=== PATIENT | female | born 2000 | race Caucasian/White ===

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

== ENCOUNTER 2019-12-07 19:43 | Emergency (ER) | payer OTHER, SELFPAY ==
[2019-12-07 19:45] VITALS: BP 147/90; PULSE 90; RESP 16; TEMP 36.4; O2SAT 99; BMI 27.6
--- NOTE | 2019-12-07 19:54 | ED.RN ---
ekg completed in triage
--- NOTE | 2019-12-07 19:55 | EKG12_ITS ---
Test Reason : DYSRHYTHMIA Blood Pressure : / mmHG Vent. Rate : 099 BPM Atrial Rate : 099 BPM P-R Int : 124 ms QRS Dur : 076 ms QT Int : 354 ms P-R-T Axes : 046 081 048 degrees QTc Int : 454 ms Normal sinus rhythm Normal ECG Confirmed by JOLANTA COREY, MARGARETH ([id number]), editor trade journal LEEROY ZHANG ([id number]) on 12/08/2019 9:45:46 AM Referred By: JACKIE Confirmed By:MARGARETH STOEVR MD
--- NOTE | 2019-12-07 19:57 | ED.RN ---
NO OLD EKGS IN MUES
[2019-12-07 20:17] VITALS: BP 114/79; PULSE 87; RESP 18; O2SAT 97
--- NOTE | 2019-12-07 20:19 | ED.RN ---
PT REFUSING IV AT THIS TIME.
--- NOTE | 2019-12-07 20:55 | ED.VIS.GEN ---
History of Present Illness Chief Complaint: Palpitations Informant: Patient Narrative: 19-year-old female with no significant past medical history presents with concern for palpitations. States that over the past 2 weeks she has had moments when she feels like her heart is skipping a beat. States that she has dizziness during these periods. Denies any chest pain, shortness of breath, nausea, vomiting. Denies any urinary symptoms. Most recent menstrual period was approximately 3 weeks ago. No concern for . Past Medical History - Allergies and Home Meds Allergies/Adverse Reactions: Allergies No Known Allergies Allergy (Verified 12/07/19 19:44) Primary Care Physician: Lashanda Turner,Out of [Primary Care Provider] - Past Medical History: None Surgical History: no surgical history Lives: Roommate Smoking Status: Never smoker Review of Systems General: Denies: Chills, Fever, Sweats Eyes: Denies: Visual changes - bilaterally, Diplopia ENT: Denies: Rhinorrhea, Sore throat Cardiovascular: Reports: Palpitations. Denies: Chest pain Respiratory: Denies: Dyspnea, Cough, Dyspnea on exertion Gastrointestinal: Denies: Abdominal pain, Nausea, Vomiting, Diarrhea, Melena, Hematochezia Genitourinary: Denies: Dysuria, Hematuria, Frequency Musculoskeletal: Denies: Back pain, Extremity Pain Skin: Denies: Rash, Wounds Neurological: Denies: Headache, Weakness, Numbness Physical Exam Vital Signs/Narrative: Vital Signs Temp Pulse Resp BP Pulse Ox 12/07/19 20:17 87 18 114/79 97 12/07/19 19:45 97.6 F L 90 16 147/90 H 99 Inital Vital Signs reviewed: Yes General: Well nourished, Well developed, No Acute Distress Head: Normocephalic, Atraumatic Eyes: Perrl, EOMI ENT: Moist mucous membranes, No rhinorrhea Neck: Supple, Nontender Cardiovascular: Regular rate, Regular rhythm, No murmurs Respiratory: No distress, CTA bilaterally, Chest nontender Abdomen: Soft, Nontender, Nondistended, Normal bowel sounds Back: Nontender, Normal Inspection Extremities: Nontender, No edema Skin: Normal color, No rash Neurological: Alert, Oriented x3, Cranial nerves II-XII grossly intact, Normal Strength, Normal Sensation Psychological: Normal affect, Normal Mood Diagnostic/Tx/Re-eval Chest X-Ray - ED: 1 View, No Acute Disease Laboratory Data 12/07/19 12/07/19 21:30 21:30 WBC 7.3 RBC 4.09 L Hgb 12.4 Hct 37.8 MCV 92.4 MCH 30.3 MCHC 32.8 RDW Std Deviation 40.2 RDW Coeff of May 11.9 Plt Count 264 MPV 9.4 Immature Gran % (Auto) 0.300 Neut % (Auto) 52.1 Lymph % (Auto) 37.8 [place] % (Auto) 8.4 Eos % (Auto) 1.0 Baso % (Auto) 0.4 Absolute Neuts (auto) 3.8 Absolute Lymphs (auto) 2.74 Nucleated RBC % 0 Sodium 142 Potassium 3.6 Chloride 110 H Carbon Dioxide 27.0 Anion Gap 5 BUN 12 Creatinine 0.72 Estim Creat Clear Calc 94.05 Est GFR (MDRD) Af Amer 133 Est GFR (MDRD) Non-Af 110 BUN/Creatinine Ratio 16.8 Glucose 88 Calcium 9.1 - Rhythm Strip Rhythm Strip: Sinus Rhythm Rate: 99 Ectopy: None - EKG Initial EKG Interpretation: Sinus Rhythm - Normal sinus rhythm at 99 bpm. MI interval 124 ms. QTC 454 ms. No evidence of ST elevation or depression at this time. - Medical Decision Making Patient appears well nontoxic. Vital signs within normal limits. EKG nonischemic. Chest x-ray negative. She does not wish to stay for urinalysis. Patient will be given local primary care to follow with. Asked to return for new or worsening symptoms. Discharged home in stable condition. Impression: 1. Palpitations 2. Dizziness ED Disposition - Plan for ED Patient: Disposition: Home or Assisted Living Instructions: ED Palpitations Referrals: Orlando Tenorio DO [STAFF PHYSICIAN] - 2 Days
--- NOTE | 2019-12-07 21:35 | RAD_ITS ---
STUDY: X-RAY CHEST REASON FOR EXAM: Female, 19 years old. palpitations, dizziness TECHNIQUE: Single AP portable view of the chest. COMPARISON: None. FINDINGS: There are monitoring devices. The lungs are clear and expanded. There is no demonstrated pleural abnormality. Normal size heart. Normal mediastinum and cole. Normal visualized pulmonary arteries. Normal visualized aortic arch and descending thoracic aorta. Normal visualized thoracic spine. Normal visualized ribs, clavicles, and shoulders. There is no demonstrated abnormality of the visualized soft tissue structures of the upper abdomen. RAD/Chest 1 View (Portable) IMPRESSION: Normal x-ray examination of the chest. Electronically Signed: Graeme Sainz MD at 23:01 EDT , Service support ,
[2019-12-07 21:38] LABS: Absolute Lymphocyte Count 2.74 X10^3/uL (0.83-4.51); Absolute Neutrophil Count 3.8 X10^3/uL (2.0-7.7); Basophil# 0.03 X10^3/uL; Basophil% 0.4 % (0-1); Eosinophil# 0.07 X10^3/uL; Hematocrit 37.8 % (37-47); Hemoglobin 12.4 g/dL (12.0-15.0); Lymphocyte # 2.74 X10^3/ul (4.0); Lymphocyte % 37.8 % (19-41); Mean Corp Hgb Conc 32.8 g/dL (32-36); Mean Corpuscular Hgb 30.3 pg (27.0-32.0); Mean Corpuscular Volume 92.4 fL (81-99); Mean Platelet Vol. 9.4 fl (6.2-12.0); Monocyte# 0.61 X10^3/uL; Monocyte% 8.4 % (0-10); NRBC Flagged by Analyzer 0 % (0-5); Neutrophil # 3.78 X10^3/uL (2.7-7.7); Neutrophil % 52.1 % (47-70); Platelet Count 264 K/mm3 (150-450); RBC Distribution Width CV 11.9 % (11.6-14.6); RBC Distribution Width SD 40.2 fl (35.1-43.9); Red Blood Count 4.09 M/mm3 (4.2-5.4); White Blood Count 7.3 K/mm3 (4.4-11.0)
[2019-12-07 21:52] LABS: Anion Gap 5 (5-15); BUN 12 mg/dL (7-18); BUN/Creat Ratio 16.8 RATIO (10-20); Calcium,Total 9.1 mg/dL (8.5-10.1); Chloride 110 mmol/L (98-107); Creatinine, Serum 0.72 mg/dL (0.55-1.02); EST Glomerular Filtration Rate 110 mL/min (>60); Est Glom Filt Rate - Afr Amer 133 mL/min (>60); Estimated Creatinine Clearance 94.05 ml/min; Glucose 88 mg/dL (74-106); Potassium 3.6 mmol/L (3.5-5.1); Sodium Level 142 mmol/L (136-145)
[2019-12-07 22:10] VITALS: PULSE 92; RESP 14; O2SAT 98
[2019-12-07 22:34] LABS: Bacteria 0 SEEN /hpf (None Seen); Mucous, Urine 0 SEEN /hpf (<or=2+); White Blood Cells 0 SEEN /hpf (0-5)
[2019-12-07 22:37] LABS: Color, Urine Yellow (Yellow); Glucose, Dipstick Normal (Normal); Ketone-Dipstick Negative (Negative); Leukocyte Esterase-Dipstick Negative /ul (Negative); Nitrite-Dipstick Negative (Negative); Occult Blood-Urine 250 /ul (Negative); Protein-Dipstick 15 mg/dl (Negative); Urine Bilirubin Dipstick Negative (Negative); Urine Clarity Clear (Clear); Urine Urobilinogen Normal (Normal)
[2019-12-07 22:40] LABS: Internal QC Validated? YES +Cl - CLEAR BKGD; Pregnancy, Urine Negative Negative
[2019-12-07 22:43] LABS: Red Blood Cells-Urine 5-10 SEEN /hpf (0-5); Squamous Epithelial Cells - UA 0-5 SEEN /hpf (5-10)
[2019-12-07 22:52] VITALS: BP 107/69; PULSE 89; RESP 17; O2SAT 98
== END 2019-12-07 22:52 | disposition home or self-care (01) ==
PROVIDERS: Emergency Provider Emergency Medicine
DX: R00.2 Palpitations (principal); R42 Dizziness and giddiness; Z79.899 Other long term (current) drug therapy
CPT/HCPCS: 71045; 80048; 81001; 81025; 85025; 93005; 99285; A4216

== ENCOUNTER 2020-01-24 18:14 | Emergency (ER) | payer OTHER, SELFPAY ==
[2020-01-24 18:14] VITALS: BP 117/67; PULSE 75; RESP 16; TEMP 36.6; O2SAT 100; BMI 27.8
--- NOTE | 2020-01-24 19:13 | ED.DCSUM_ITS ---
History of Present Illness Chief Complaint: Confusion Informant: Patient Narrative: Patient is a 19-year-old female with a past medical history of migraines who presents to the emergency department for a list of complaints. Patient has reviewed back to a list on her cell phone to remember all of the complaints. Her main concern is that she had a small head injury 6 weeks ago. She states that she was trying to get into bed and hit the back of her head against a wall. She felt mildly dizzy at that time and then took a nap. She was concerned she had a concussion because she is had some intermittent headaches. She did see a emergency department doctor 2 weeks after the event who told her to follow-up with a specialist but she has not been able to due to her insurance. Not been taking anything. She has intermittent headaches. She currently rates her headache as a 2.5 out of 10. She does get some intermittent nausea. She has tinnitus in her left ear but also in her right occasionally. This is mostly when lying down. She is having difficulty with school and is requesting a note for this. Patient is currently being treated for dysuria with nitrofurantoin. She recent completed course of Keflex but this did not relieve her symptoms. She states she still has a few days left of this antibiotic. She denies any fevers or chills. Past Medical History - Allergies and Home Meds Allergies/Adverse Reactions: Allergies No Known Allergies Allergy (Verified 01/24/20 18:16) Primary Care Physician: CHANTAL BONDS [Other] Prior records reviewed: Yes Surgical History: no surgical history Smoking Status: Never smoker Review of Systems All systems negative except as indicated General: Denies: Chills, Fever, Sweats Eyes: Denies: Visual changes - bilaterally, Diplopia ENT: Denies: Rhinorrhea, Sore throat Cardiovascular: Denies: Chest pain, Palpitations Respiratory: Denies: Dyspnea, Cough, Dyspnea on exertion Gastrointestinal: Reports: Nausea. Denies: Abdominal pain, Vomiting, Diarrhea, Melena, Hematochezia Genitourinary: Reports: Dysuria. Denies: Hematuria, Frequency Musculoskeletal: Denies: Back pain, Extremity Pain Skin: Denies: Rash, Wounds Neurological: Reports: Headache. Denies: Weakness, Numbness Physical Exam Vital Signs/Narrative: Vital Signs Temp Pulse Resp BP Pulse Ox 01/24/20 18:14 97.8 F 75 16 117/67 100 Inital Vital Signs reviewed: Yes General: Well nourished, Well developed, No Acute Distress Head: Normocephalic, Atraumatic Eyes: Perrl, EOMI ENT: Moist mucous membranes, No rhinorrhea, - - Left tympanic membrane obstructed by cerumen impaction. Right tympanic membrane is clear. Neck: Supple, Nontender Cardiovascular: Regular rate, Regular rhythm, No murmurs Respiratory: No distress, CTA bilaterally, Chest nontender Abdomen: Soft, Nontender, Nondistended, Normal bowel sounds Back: Nontender, Normal Inspection Extremities: Nontender, No edema Skin: Normal color, No rash Neurological: Alert, Oriented x3, Cranial nerves II-XII grossly intact, Normal Strength, Normal Sensation Psychological: Normal affect, Normal Mood Diagnostic/Tx/Re-eval - Medical Decision Making Patient presents the emerge department for multiple complaints that are related to possible postconcussive syndrome. She is requesting a prescription for antinausea medication will be provided 1. She is currently being treated for the UTI and wants to complete the course of antibiotics before being rechecked. I do not feel CT scan of the head is indicated as the head trauma was minor and she is having some intermittent syndromes. She otherwise is stable throughout ED. She is a benign physical exam without any acute focal neurological deficits. We will have her follow-up with her PCP. Warning signs and symptoms for which to return to the ED are reviewed. She understands and is agreeable this plan. All questions answered. ED Disposition - Plan for ED Patient: Disposition: Home or Assisted Living Diagnosis: Post concussion syndrome Instructions: Concussion Prescriptions: Ondansetron [Zofran Odt] 4 mg PO Q8H PRN PRN #10 tab PRN Reason: Nausea Transmission Status: Pending to [facility] Referrals: ,JUNE [Other] - 3-5 Days
== END 2020-01-24 19:33 | disposition home or self-care (01) ==
LOC: ED 19:30
PROVIDERS: Emergency Provider Emergency Medicine
DX: F07.81 Postconcussional syndrome (principal); N39.0 Urinary tract infection, site not specified; H61.22 Impacted cerumen, left ear; Z79.899 Other long term (current) drug therapy
CPT/HCPCS: 99282

== ENCOUNTER 2020-04-10 19:29 | Emergency (ER) | payer OTHER, SELFPAY ==
[2020-04-10 19:30] VITALS: BP 143/72; PULSE 66; RESP 14; TEMP 36.8; O2SAT 99; BMI 26.7
[2020-04-10 20:22] LABS: Bacteria 0 SEEN /hpf (None Seen); Mucous, Urine 0 SEEN /hpf (<or=2+); Red Blood Cells-Urine 0 SEEN /hpf (0-5); White Blood Cells 0 SEEN /hpf (0-5)
[2020-04-10 20:23] LABS: Color, Urine Yellow (Yellow); Glucose, Dipstick Normal (Normal); Ketone-Dipstick Negative (Negative); Leukocyte Esterase-Dipstick Negative /ul (Negative); Nitrite-Dipstick Negative (Negative); Occult Blood-Urine 50 /ul (Negative); Protein-Dipstick Negative (Negative); Specific Gravity, Urine 1.005 (1.002-1.030); Urine Bilirubin Dipstick Negative (Negative); Urine Clarity Clear (Clear); Urine Urobilinogen Normal (Normal)
[2020-04-10 20:31] LABS: Internal QC Validated? YES +Cl - CLEAR BKGD; Pregnancy, Urine Negative Negative
[2020-04-10 20:32] LABS: Squamous Epithelial Cells - UA 0-5 SEEN /hpf (5-10)
--- NOTE | 2020-04-10 20:33 | CT_ITS ---
STUDY: CT ABDOMEN AND PELVIS WITHOUT CONTRAST REASON FOR EXAM: Female, 19 years old. SUPRAPUBIC AND BLADDER PAIN SINCE 12/2019. Urination helps alleviate pain RADIATION DOSAGE (If Supplied By Facility): CTDIvol = ( 7.09 ) mGy, DLP = ( 349.05 ) mGycm TECHNIQUE: Transaxial images were obtained from the dome of the diaphragm to the symphysis pubis without oral contrast, and without intravenous contrast. Sagittal and coronal images were reconstructed. Individualized dose optimization techniques were used for this CT. COMPARISON: None. FINDINGS: The visualized lung bases are unremarkable. The visualized portions of the heart are within normal limits. Normal liver. Normal gallbladder and extrahepatic biliary system. Normal spleen. Normal pancreas. Normal bilateral adrenal glands. Normal right kidney. Normal left kidney. Evaluation of the GI tract is limited by absence of oral contrast. Cannot exclude stomach wall thickening. No dilated loops of bowel or evidence for obstruction. Cannot exclude segmental thickening of the mcmanus of the small or large bowel. Cannot exclude enteritis or colitis. Moderate diffuse fecal retention. Appendix within normal limits. Normal abdominal aorta. Normal inferior vena cava. Normal retroperitoneum. Normal urinary bladder. Normal visualized uterus. Normal abdominal wall. Normal osseous structures. CT/Abdomen/Pelvis without Cont IMPRESSION: No definite acute or significant abnormality seen. Electronically Signed: Boaz Fisher MD at 21:10 EST , Service support ,
[2020-04-10] MEDS: HYDROcodone Bitartrate/Apap 5/325 Tablet PO (20:45)
--- NOTE | 2020-04-10 21:42 | ED.DEP ---
ED Disposition - Plan for ED Patient: Instructions: ED Abdominal Pain Unkn Cause Fem Prescriptions: Naproxen [Naprosyn] 500 mg PO BID PRN #20 tab Prescription Printed Referrals: VAMSHICHANTAL [Other] Simona Maria MD [STAFF PHYSICIAN] -
--- NOTE | 2020-04-10 21:47 | ED.VISSUMM ---
- ER Visit Summary Date of Service: 04/10/20 Chief Complaint: Suprapubic pain History of Present Illness: The patient is a 19 F presenting with suprapubic pain. She states that she has been having intermittent pain around her bladder since December. She states has been tested multiple times for UTI and has always been negative. She complains of dysuria. She denies nausea or vomiting. Denies fever. Denies back pain. Denies vaginal discharge. Denies possibility of . Physical Examination: Vitals are stable. Patient is afebrile. Alert no acute distress. HEENT exam is unremarkable. Neck is supple. Lungs are clear and equal bilaterally. Heart is regular rate and rhythm. Abdomen is soft mild suprapubic tenderness no guarding or rebound Pelvic: Declined Extremities are unremarkable. Skin is warm and dry. Remainder of exam is unremarkable. Emergency Department Course and Treatment: Urinalysis shows 0 white blood cells, 0 red blood cells. hCG negative. CT abdomen pelvis shows no acute process. She was given [place] x1. She had some improvement of her pain. She would like a referral to urology for possible interstitial cystitis. She is given Dr. Maria on-call for no doctor. She is advised to follow-up with her primary care physician as well. Advised return the ED for worsening complaints. Disposition: Discharge Impression: Abdominal pain This note was generated with [employer] ([employer] dictation software. It may contain incorrect words, spelling, and punctuation that were not noted in review of the chart prior to signing ED Disposition - Plan for ED Patient: Instructions: ED Abdominal Pain Unkn Cause Fem Prescriptions: Naproxen [Naprosyn] 500 mg PO BID PRN #20 tab Prescription Printed Referrals: VAMSHI [Other] Simona Maria MD [STAFF PHYSICIAN] -
[2020-04-10 22:06] VITALS: PULSE 84; RESP 16; O2SAT 99
== END 2020-04-10 22:07 | disposition home or self-care (01) ==
LOC: ED 20:37
PROVIDERS: Emergency Provider Emergency Medicine
DX: R10.9 Unspecified abdominal pain (principal); R30.0 Dysuria; Z79.899 Other long term (current) drug therapy
CPT/HCPCS: 74176; 81001; 81025; 99283

== ENCOUNTER 2020-07-03 11:28 | Outpatient (CLI) | payer BC, SELFPAY | END 2020-07-03 11:30 | disposition home or self-care (01) | LOC: IMMUN 07-06 11:28 | PROVIDERS: Referring Provider Family Medicine; Visit Provider Family Medicine | DX: Z23 Encounter for immunization (principal) | CPT/HCPCS: 0031A; 91303 ==

== ENCOUNTER 2020-12-29 14:02 | Emergency (ER) | payer OTHER, BC, SELFPAY ==
[2020-12-29 14:03] VITALS: BP 130/78; PULSE 110; RESP 20; TEMP 37.4; O2SAT 99; BMI 24.3
[2020-12-29] MEDS: predniSONE 20 MG Tablet 60 MG PO (15:15)
[2020-12-29 15:16] VITALS: O2SAT 98
[2020-12-29] MEDS: Ipratropium/Albuterol Sulfate 3 ML AMPUL.NEB INHALATION (15:20)
[2020-12-29 15:21] VITALS: PULSE 95; RESP 18
--- NOTE | 2020-12-29 15:23 | ED.VIS.DYS ---
HPI History of Present Illness Chief Complaint: Asthma Informant: patient Onset/Context/Timing Onset: Weeks (3) Context: gradual Timing: Waxes and wanes Quality: Positive for - (Coughing) Worsened by: Coughing Relieved by: Nothing Associated Symptoms cough; Negative for rhinorrhea, ear pain, fever, sore throat, chills, clear sputum, white sputum, yellow sputum or green sputum Chest Pain: Positive for Tightness and - (Constriction, heaviness) Narrative Narrative: Patient presents with shortness of breath that has been getting worse over the past 3 weeks. Patient is a [employer] student and is out of her inhaler. Patient states that she has cough variant asthma. Patient states she has been coughing more over the past 3 weeks. Patient states it has been waxing and waning. Patient denies any sputum production. Patient states she has some heaviness and constriction in her chest. Patient states this feels similar to prior episodes of asthma. Patient denies any fevers or chills. [facility] Medical History (Updated 12/29/20 @ 16:[address] Chauncey Schneider DO) Asthma, cough variant Idiopathic anaphylaxis Home Medications levalbuterol tartrate 1 inh INHALATION DAILY PRN 12/22/17 [History Last Taken Unknown] topiramate 25 mg PO DAILY 12/07/19 [History Last Taken Unknown] naproxen 500 mg PO BID PRN #20 tab 04/10/20 [Rx Last Taken Unknown] albuterol sulfate [Ventolin HFA] 1 - 2 puff INHALATION Q4H PRN PRN #1 inhaler 12/29/20 [Rx Last Taken Unknown] prednisone 60 mg PO DAILY #12 tablet 12/29/20 [Rx Last Taken Unknown] Allergy/AdvReac Type Severity Reaction Status Date / Time No Known Allergies Allergy Verified 12/29/20 14:07 Surgical History no surgical history no surgical history Social History Smoking Status: Never smoker ROS ROS ED Constitutional Constitutional ED: Denies chills or fever(s) Eyes Eyes: Denies blurry vision or change in vision ENT ENT ED: Denies rhinorrhea or sore throat Cardiovascular Cardiovascular: Denies chest pain or palpitations Respiratory/Chest Respiratory/Chest: Reports cough and dyspnea Gastrointestinal Gastrointestinal: Denies nausea or vomiting Genitourinary Genitourinary ED: Denies dysuria or hematuria Musculoskeletal Musculoskeletal: Denies back pain or neck pain Integumentary Denies abscess or rash Neurologic Neurologic: Denies headache(s) or weakness Allergic/Immunologic Allergic/Immunologic ED: Denies mouth swelling or urticaria EXAM Physical Exam Const Vital Signs: 12/29/20 14:03 12/29/20 15:16 12/29/20 15:21 Temperature 99.3 F H Temperature Source Temporal Pulse Rate 110 H 95 Respiratory Rate 20 H 18 Respiratory Effort Normal Non-Labored Respiratory Depth Normal Respiratory Pattern Normal Blood Pressure 130/78 H Blood Pressure Mean 95 Pulse Ox 99 Oxygen Delivery Method Room Air Room Air Positive well nourished and well developed General Appearance ED: well developed HEENT Reports moist mucous membranes Neck supple and no JVD Resp normal respiratory effort Auscultation: diminished lung sounds diffuse Cardio regular rate and regular rhythm GI non-tender Palpation: soft Neuro oriented x3, CN's II-XII intact bilaterally and no sensory deficits noted Sensorium / Orientation: alert Motor Exam: strength 5/5 throughout Psych mental status grossly normal MDM MDM MDM Narrative Medical decision making narrative: Patient was given a DuoNeb aerosol here. Patient was started on prednisone here. Portable 1 view chest x-ray was obtained. On my interpretation, lung cuello are clear. There is normal cardiac silhouette. Bony thorax is normal. There is no acute process noted. Radiologist also interpreted the x-ray and agrees. Patient was feeling better on reevaluation. Patient was given a prescription for an inhaler. Patient was instructed to follow-up with her primary care physician in 5 to 7 days. Patient understood and was agreeable with the plan. All questions were answered. Radiography Chest X-Ray - ED: 1 View, Read by ED Physician, Read by Radiologist and Normal Diagnostic Testing: Clinical Impression(s) from Imaging Studies Chest X-Ray 12/29/20 15:26 IMPRESSION: Normal x-ray examination of the chest. Electronically Signed: Ramón Helm MD at 15:42 EDT , Service support , Discharge Plan Triage Chief Complaint: Asthma ED Provider: Chauncey Schneider Dx/Rx/DC Orders Clinical Impression: Asthma, cough variant Instructions: ED Asthma, Acute (Adult) Prescriptions: New albuterol sulfate [Ventolin HFA] 1 INHALER inhaler 1 - 2 puff inhalation Q4H PRN PRN (Reason: Wheezing) Qty: 1 RF: 0 prednisone 20 MG tablet 60 mg PO DAILY Qty: 12 RF: 0 No Action levalbuterol tartrate 45 HFA aerosol inhaler 1 inh inhalation DAILY PRN (Reason: Sob &/Or Wheezing) RF: 0 topiramate 25 MG tablet 25 mg PO DAILY RF: 0 naproxen 500 MG tablet 500 mg PO BID PRN Qty: 20 RF: 0 Referrals: ,JUNE [Other] - 3-5 Days Disposition Disposition: Home, Self Care
--- NOTE | 2020-12-29 15:26 | RAD_ITS ---
STUDY: X-RAY CHEST REASON FOR EXAM: Female, 20 years old. Dyspnea TECHNIQUE: Single AP portable view of the chest. COMPARISON: Comparison is made with prior study dated 12/07/2019. FINDINGS: The lungs are clear and expanded. There is no demonstrated pleural abnormality. Normal size heart. Normal mediastinum and cole. Normal visualized pulmonary arteries. Normal visualized aortic arch and descending thoracic aorta. Normal visualized thoracic spine. Normal visualized ribs, clavicles, and shoulders. There is no demonstrated abnormality of the visualized soft tissue structures of the upper abdomen. RAD/Chest 1 View (Portable) IMPRESSION: Normal x-ray examination of the chest. Electronically Signed: Ramón Helm MD at 15:42 EDT , Service support ,
[2020-12-29 16:55] VITALS: PULSE 91; RESP 16; O2SAT 100
--- NOTE | 2020-12-29 16:56 | ED.RN ---
THIS NURSE REVIEWED D/C INSTRUCTIONS WITH PT. PT VERBALIZED UNDERSTANDING OF INSTRUCTIONS. PT DENIES FURTHER NEEDS OR QUESTIONS AT THIS TIME .
== END 2020-12-29 16:56 | disposition home or self-care (01) ==
PROVIDERS: Emergency Provider Emergency Medicine
DX: J45.991 Cough variant asthma (principal); Z79.899 Other long term (current) drug therapy
CPT/HCPCS: 71045; 94640; 99283

== ENCOUNTER 2021-02-02 20:40 | Emergency (ER) | payer OTHER, BC, SELFPAY ==
[2021-02-02 20:41] VITALS: BP 129/89; PULSE 92; RESP 15; TEMP 36.2; O2SAT 100; BMI 23.8
--- NOTE | 2021-02-02 20:54 | CM.ED ---
SW Note Referral Source: [facility] Referral Reason: SI JACK was contacted by the [facility] RN. She fabricio that she is sending a student to the ED. The patient came to the [facility] RN with concerns of self harm. The RN stated that at baseline patient has no intent regarding self harm but at this time she reports intent to act on her plan. RN reports patient has a plan but did not know what the plan was. Patient wants to be hospitalized. Patient answered the screening questions of having a plan, wanting to in the last month, thoughts of self harm and a detailed plan. RN said that patient reports when she feels these feelings she has to act on them. Patient reports chronic pain, issues with friends, family health concern and working on her senior project as stressors per RN. chargemaster specialist Benedicto gustafson. [facility] CH[facility]
--- NOTE | 2021-02-02 20:58 | EKG12_ITS ---
[place] [facility] [place] Pressure : / mmHG Vent. Rate : 083 BPM Atrial Rate : 083 BPM P-R Int : 122 ms QRS Dur : 076 ms QT Int : 378 ms P-R-T Axes : 046 084 041 degrees QTc Int : 444 ms Normal sinus rhythm Normal ECG Confirmed by JOLANTA COREY, MARGARETH ([id number]), slot editor LEEROY ZHANG ([id number]) on 02/05/2021 10:11:48 AM Referred By: PAMELA Confirmed By:MARGARETH STOVER MD
--- NOTE | 2021-02-02 21:02 | CM.ED ---
JACK Note SW met with patient briefly to explain that the ED is very busy tonight but staff will care for her tonight but she may have to wait. Patient verbalized understanding ([place] [facility] [place] would [place] SW also explained that [facility] would [facility] her to complete the assessment. Patient verbalized understanding. Voiced no issues or concerns. Returned to waiting room. [facility] CHAMBERS
--- NOTE | 2021-02-02 21:28 | RAD_ITS ---
HISTORY: MENTAL HEALTH EXAMINATION/TECHNIQUE: XR Chest 1 View: 1 view COMPARISON: 12/29/20 FINDINGS: LINES/DEVICES: None. LUNGS: No consolidation, edema or effusion. No pneumothorax. MEDIASTINUM AND CARDIOVASCULAR STRUCTURES: Cardiac silhouette not enlarged. Central airways and mediastinal contour are unremarkable. BONES AND SOFT TISSUES: No acute bony abnormalities. RAD/Chest 1 View (Portable) IMPRESSION: No radiographic evidence of acute cardiopulmonary disease. at 2141 Reported and signed by: Juan iMguel Roberto MD Electronically Signed: Juan Miguel Roberto MD at 21:40 EST Tel , Service support ,
[2021-02-02 21:39] LABS: Absolute Lymphocyte Count 2.44 X10^3/uL (0.83-4.51); Basophil# 0.03 X10^3/uL; Basophil% 0.3 % (0-1); Eosinophil# 0.03 X10^3/uL; Eosinophils% 0.3 % (0-5); Hematocrit 42.1 % (37-47); Hemoglobin 13.9 g/dL (12.0-15.0); Lymphocyte # 2.44 X10^3/ul (0.83-4.51); Lymphocyte % 26.4 % (19-41); Mean Corpuscular Hgb 29.1 pg (27.0-32.0); Mean Corpuscular Volume 88.1 fL (81-99); Mean Platelet Vol. 10.2 fl (6.2-12.0); Monocyte# 0.72 X10^3/uL; Monocyte% 7.8 % (0-10); NRBC Flagged by Analyzer 0 % (0-5); Neutrophil # 5.98 X10^3/uL (2.7-7.7); Neutrophil % 64.9 % (47-70); Platelet Count 307 K/mm3 (150-450); RBC Distribution Width CV 12.3 % (11.6-14.6); Red Blood Count 4.78 M/mm3 (4.2-5.4); White Blood Count 9.2 K/mm3 (4.4-11.0)
[2021-02-02 21:59] LABS: Anion Gap 10 (5-15); BUN 20 mg/dL (7-18); Calcium,Total 9.5 mg/dL (8.5-10.1); Chloride 106 mmol/L (98-107); Creatinine, Serum 0.77 mg/dL (0.55-1.02); EST Glomerular Filtration Rate 100 mL/min (>60); Est Glom Filt Rate - Afr Amer 121 mL/min (>60); Estimated Creatinine Clearance 91.41 ml/min; Glucose 90 mg/dL (74-106); Potassium 3.9 mmol/L (3.5-5.1); Sodium Level 138 mmol/L (136-145)
[2021-02-02 22:21] LABS: Internal QC Validated? YES +Cl - CLEAR BKGD; Pregnancy, Serum, hCG Quali. NEGATIVE Negative
[2021-02-02 22:23] LABS: Alcohol, Blood (Medical)-Serum < 3.0 mg/dL
[2021-02-02 23:40] VITALS: RESP 16; O2SAT 97
[2021-02-02 23:48] LABS: White Blood Cells 0 SEEN /hpf (0-5)
[2021-02-02 23:56] LABS: Color, Urine Yellow (Yellow); Glucose, Dipstick Normal (Normal); Ketone-Dipstick Negative (Negative); Leukocyte Esterase-Dipstick Negative /ul (Negative); Nitrite-Dipstick Negative (Negative); Occult Blood-Urine 250 /ul (Negative); Protein-Dipstick Negative (Negative); Specific Gravity, Urine 1.025 (1.002-1.030); Urine Bilirubin Dipstick Negative (Negative); Urine Clarity Clear (Clear); Urine Urobilinogen Normal (Normal)
[2021-02-03] VITALS (9 sets, daily range): BP systolic 119–127; BP diastolic 69–91; PULSE 69–87; RESP 16–17; TEMP 36.5; O2SAT 97–100
[2021-02-03 00:29] LABS: Amphetamine Urine VISTA NEGATIVE (<1000 ng/mL); Barbiturate Urine VISTA NEGATIVE (< 200 ng/mL); Benzodiazepine Urine VISTA NEGATIVE (< 200 ng/mL); Cocaine Urine VISTA NEGATIVE (< 300 ng/mL); Ecstacy Urine VISTA NEGATIVE (< 500 ng/mL); Methadone Urine VISTA NEGATIVE (< 300 ng/mL); PCP Urine VISTA NEGATIVE (< 25 ng/mL); THC Urine VISTA NEGATIVE (< 50 ng/mL); Vista UDS pH Range 5
[2021-02-03 00:35] LABS: Red Blood Cells-Urine 5-10 SEEN /hpf (0-5); Squamous Epithelial Cells - UA 0-5 SEEN /hpf (5-10); Transitional Epithelial - Ur 0-5 SEEN /hpf (0-5)
[2021-02-03 00:36] LABS: Bacteria RARE /hpf (None Seen); Mucous, Urine 2+ /hpf (<or=2+)
--- NOTE | 2021-02-03 00:36 | NURSING ---
CALLED CRISIS AT 0036
--- NOTE | 2021-02-03 01:17 | ED.RN ---
crisis called and speaking with patient at this time
--- NOTE | 2021-02-03 01:48 | ED.RN ---
CRISIS CALLED AND SPOKE TO DR MURRIETA. THEY ARE WORKING TO PLACE PT.
--- NOTE | 2021-02-03 02:05 | ED.RN ---
patient pending at [facility] at this time
--- NOTE | 2021-02-03 04:52 | EDS_ITS ---
HPI History of Present Illness Chief Complaint: Suicidal Narrative Narrative: Patient is a 20-year-old female who states that she has been dealing with a lot of various life stressors. She states that this has been culminating and now is to the point where she is contemplating suicide. She states she has never had to be admitted to a psychiatric hospital for and is never attempted suicide. She states that this time she has a plan but does not wish to share with anyone. She also states that she is in this area because of college and does not have any family or friends who she could be observed by. Patient also states that she has poor impulse control. She states that she is concerned that with her poor impulse control and worsening suicidal ideation that she could harm her self and with this presents for evaluation [facility] Medical History Asthma, cough variant Idiopathic anaphylaxis Interstitial cystitis Home Medications levalbuterol tartrate 1 inh INHALATION DAILY PRN 12/22/17 [History Last Taken Unknown] topiramate 25 mg PO DAILY 12/07/19 [History Last Taken Unknown] albuterol sulfate [Ventolin HFA] 1 - 2 puff INHALATION Q4H PRN PRN #1 inhaler 12/29/20 [Rx Last Taken Unknown] amitriptyline 50 mg PO QHS 02/02/21 [History Last Taken Unknown] Allergy/AdvReac Type Severity Reaction Status Date / Time No Known Allergies Allergy Verified 02/02/21 20:45 Social History Smoking Status: Never smoker [facility] ED Constitutional Constitutional ED: Denies chills or fever(s) ENT ENT ED: Denies sore throat Cardiovascular Cardiovascular: Denies chest pain Respiratory/Chest Respiratory/Chest: Denies cough or dyspnea Gastrointestinal Gastrointestinal: Denies abdominal pain, diarrhea, nausea or vomiting Genitourinary Genitourinary ED: Denies dysuria Musculoskeletal Musculoskeletal: Denies myalgias Integumentary Denies rash Neurologic Neurologic: Denies headache(s) Psychiatric Psychiatric: Reports anhedonia, depression, suicidal ideation and suicidal thoughts; Denies homicidal ideation Hematologic/Lymphatic Hematologic/Lymphatic: Denies easy bleeding or easy bruising EXAM Physical Exam Const Vital Signs: 02/02/21 20:41 02/02/21 23:40 02/03/21 01:00 Temperature 97.2 F L Temperature Source Temporal Pulse Rate 92 Respiratory Rate 15 16 16 Blood Pressure 129/89 H Blood Pressure Mean 102 Pulse Ox 100 97 Oxygen Delivery Method Room Air 02/03/21 02:50 Temperature 97.7 F L Temperature Source Oral Pulse Rate 80 Respiratory Rate 16 Blood Pressure 119/69 Blood Pressure Mean 85 Pulse Ox 97 Oxygen Delivery Method Room Air Positive well nourished and well developed General Appearance ED: well developed HEENT Reports moist mucous membranes Eyes PERRL and EOMs intact bilaterally Neck supple Resp normal respiratory effort and clear to auscultation bilaterally Cardio regular rate and regular rhythm GI non-tender and non-distended Auscultation: normoactive bowel sounds Palpation: soft Extremity normal to inspection Neuro oriented x3 and CN's II-XII intact bilaterally Sensorium / Orientation: alert Psych Psych Narrative: Patient has a flat/depressed affect with suicidal ideation Skin no rashes or lesions noted MDM MDM MDM Narrative Medical decision making narrative: Patient presented to the ER with stable vitals and in no acute distress. However with her report of increasing depression and suicidal ideation and poor impulse control I did elect to perform a basic psychiatric clearance exam. Patient's EKG was sinus rhythm chest x-ray is clear Covid test is negative and labs reveal no clinically significant finding. Patient was evaluated by crisis center and they do wish for the patient to be placed at this time secondary to her poor impulse control and reporting suicidal ideation with a plan but refusing to share/discussed what that is. Therefore in order to ensure her safety and help with her worsening depression and suicidal ideation patient will be placed at this time Please note that the patient is medically cleared from emergency room standpoint and is safe for placement/transfer in a psychiatric facility Lab Data Attestation: I reviewed the patient's lab results. Labs: Laboratory Results - last 24 hr 02/02/21 02/02/21 02/02/21 21:20 21:20 21:20 WBC 9.2 RBC 4.78 Hgb 13.9 Hct 42.1 MCV 88.1 MCH 29.1 MCHC 33.0 RDW Std Deviation 40.0 RDW Coeff of May 12.3 Plt Count 307 MPV 10.2 Immature Gran % (Auto) 0.300 Neut % (Auto) 64.9 Lymph % (Auto) 26.4 [place] % (Auto) 7.8 Eos % (Auto) 0.3 Baso % (Auto) 0.3 Absolute Neuts (auto) 6.0 Absolute Lymphs (auto) 2.44 Nucleated RBC % 0 Sodium 138 Potassium 3.9 Chloride 106 Carbon Dioxide 22.0 Anion Gap 10 BUN 20 H Creatinine 0.77 Estim Creat Clear Calc 91.41 Est GFR (MDRD) Af Amer 121 Est GFR (MDRD) Non-Af 100 BUN/Creatinine Ratio 26.0 H Glucose 90 Calcium 9.5 Serum , Qual Urine Color Urine Clarity Urine pH Ur Specific [place] Urine Protein Urine Glucose (UA) Urine Ketones Urine Occult Blood Urine Nitrite Urine Bilirubin Urine Urobilinogen Ur Leukocyte Esterase Urine RBC Urine WBC Ur Squamous Epith Cells Ur Transition Epith Cell Urine Bacteria Urine Mucus Urine Opiates Screen Urine Methadone Screen Ur Barbiturates Screen Ur Phencyclidine Scrn Ur Amphetamines Screen U Methamphetamin-MDMA U Benzodiazepines Scrn Urine Cocaine Screen U Cannabinoids Screen Ur Drug Screen Comment Ethyl Alcohol < 3.0 02/02/21 02/02/21 02/02/21 21:20 23:40 23:40 WBC RBC Hgb Hct MCV MCH MCHC RDW Std Deviation RDW Coeff of May Plt Count MPV Immature Gran % (Auto) Neut % (Auto) Lymph % (Auto) [place] % (Auto) Eos % (Auto) Baso % (Auto) Absolute Neuts (auto) Absolute Lymphs (auto) Nucleated RBC % Sodium Potassium Chloride Carbon Dioxide Anion Gap BUN Creatinine Estim Creat Clear Calc Est GFR (MDRD) Af Amer Est GFR (MDRD) Non-Af BUN/Creatinine Ratio Glucose Calcium Serum , Qual NEGATIVE Urine Color Yellow Urine Clarity Clear Urine pH 5.0 Ur Specific [place] 1.025 Urine Protein Negative Urine Glucose (UA) Normal Urine Ketones Negative Urine Occult Blood 250 H Urine Nitrite Negative Urine Bilirubin Negative Urine Urobilinogen Normal Ur Leukocyte Esterase Negative Urine RBC 5-10 SEEN Urine WBC 0 SEEN Ur Squamous Epith Cells 0-5 SEEN Ur Transition Epith Cell 0-5 SEEN Urine Bacteria RARE Urine Mucus 2+ Urine Opiates Screen NEGATIVE Urine Methadone Screen NEGATIVE Ur Barbiturates Screen NEGATIVE Ur Phencyclidine Scrn NEGATIVE Ur Amphetamines Screen NEGATIVE U Methamphetamin-MDMA NEGATIVE U Benzodiazepines Scrn NEGATIVE Urine Cocaine Screen NEGATIVE U Cannabinoids Screen NEGATIVE Ur Drug Screen Comment Ethyl Alcohol Radiography Diagnostic Testing: Clinical Impression(s) from Imaging Studies Chest X-Ray 02/02/21 21:28 IMPRESSION: No radiographic evidence of acute cardiopulmonary disease. at 2141 Reported and signed by: Juan Miugel Roberto MD Electronically Signed: Juan Miguel Roberto MD at 21:40 EST Tel , Service support , Discharge Plan Triage Chief Complaint: Suicidal ED Provider: Isra Jo Dx/Rx/DC Orders Clinical Impression: Depression with suicidal ideation Prescriptions: No Action levalbuterol tartrate 45 HFA aerosol inhaler 1 inh inhalation DAILY PRN (Reason: Sob &/Or Wheezing) RF: 0 topiramate 25 MG tablet 25 mg PO DAILY RF: 0 albuterol sulfate [Ventolin HFA] 1 INHALER inhaler 1 - 2 puff inhalation Q4H PRN PRN (Reason: Wheezing) Qty: 1 RF: 0 amitriptyline 50 mg tablet 50 mg PO QHS RF: 0 Referrals: ,JUNE [Other] Disposition Disposition: Psychiatric Hospital or Unit Discharge Location: [place]
== END 2021-02-03 11:14 ==
PROVIDERS: Emergency Provider Emergency Medicine
DX: F32.A Depression, unspecified (principal); R45.851 Suicidal ideations; Z20.822 Contact with and (suspected) exposure to COVID-19; N30.10 Interstitial cystitis (chronic) without hematuria; J45.991 Cough variant asthma; Z79.899 Other long term (current) drug therapy
CPT/HCPCS: 71045; 80048; 80307; 81001; 82077; 84703; 85025; 87426; 93005; 99285

== ENCOUNTER 2021-06-13 16:36 | Emergency (ER) | payer OTHER, SELFPAY ==
[2021-06-13 16:37] VITALS: BP 107/84; PULSE 105; RESP 16; TEMP 36.6; O2SAT 97; BMI 24.5
--- NOTE | 2021-06-13 16:42 | EDS_ITS ---
HPI HPI - Psych History of Present Illness Chief Complaint: Anxiety Informant: patient Onset/Context/Timing Onset: Weeks (several) Context: Gradual Onset Conflict: Family ( in family recently), Financial and - (school) Timing: Continuous Current Severity: Severe Maximum Severity: Severe Worsened by: Situational factors Relieved by: nothing Associated Symptoms Associated Symptoms - Psych: Positive for Change in sleeping (difficult to sleep due to anxiety) and Visual Hallucinations (twigs look like worms sometimes); Negative for Depressed, Change in Eating, Suicidal Thoughts, Paranoia and Auditory Hallucinations Narrative Narrative: 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 This is been going on for the last several weeks. In addition to this, she has seasonal allergies in the spring her asthma has been intermittently flaring up along with seasonal allergies including a minor cough and rhinorrhea, mild chest tightness, some palpitations and shortness of breath that feels like wheezing all of which is mild and without near-syncope or syncope. She has been using her albuterol inhaler rarely, it does help when she takes it. She was on amitriptyline for interstitial cystitis but she has not been on that since January, her chronic abdominal pain contributes to her stress, she has never been on any medications for depression or anxiety. [facility] Medical History Asthma, cough variant Idiopathic anaphylaxis Interstitial cystitis Home Medications cetirizine [24Hour Allergy] 10 mg PO DAILY PRN #30 tab 06/13/21 [Rx Last Taken Unknown] hydroxyzine pamoate 50 mg PO TID PRN PRN #30 capsule 06/13/21 [Rx Last Taken Unknown] Allergy/AdvReac Type Severity Reaction Status Date / Time No Known Allergies Allergy Verified 02/02/21 20:45 Social History Smoking Status: Never smoker ROS ROS ED Constitutional Constitutional ED: Denies chills or fever(s) Eyes Eyes: Denies change in vision or diplopia ENT ENT ED: Reports rhinorrhea; Denies sore throat Cardiovascular Cardiovascular: Reports chest pain and palpitations Respiratory/Chest Respiratory/Chest: Reports cough, dyspnea and wheezing Gastrointestinal Gastrointestinal: Reports abdominal pain; Denies diarrhea, nausea or vomiting Genitourinary Genitourinary ED: Denies dysuria or hematuria Musculoskeletal Musculoskeletal: Denies back pain or neck pain Integumentary Denies abscess or rash Neurologic Neurologic: Denies headache(s), paresthesias or weakness Psychiatric Psychiatric: Denies anxiety or suicidal thoughts EXAM Physical Exam Const Vital Signs: 06/13/21 16:37 Temperature 97.8 F Temperature Source Temporal Pulse Rate 105 H Respiratory Rate 16 Blood Pressure 107/84 H Blood Pressure Mean 91 Pulse Ox 97 Oxygen Delivery Method Room Air Positive well nourished and well developed General Appearance ED: well developed and NAD HEENT Reports moist mucous membranes normocephalic and atraumatic Eyes PERRL and EOMs intact bilaterally Neck full ROM and supple Resp normal respiratory effort and clear to auscultation bilaterally Cardio regular rate, regular rhythm and no murmurs Rate: Negative for tachycardic GI non-tender and non-distended Auscultation: normoactive bowel sounds Palpation: soft Back/Spine no CVA tenderness General Back: other FROM Extremity normal to inspection General Extremety ED: Negative for edema, pulses abnormal or tenderness General Extremity: Negative for edema or pulses abnormal Neuro oriented x3, CN's II-XII intact bilaterally and no sensory deficits noted Sensorium / Orientation: awake and alert Motor Exam: strength 5/5 throughout Psych mental status grossly normal, thought process normal, cooperative, activity/motor behavior normal, denies homicidal ideation and denies suicidal ideation Appearance: grossly normal Attitude: calm Activity / Motor Behavior: appropriate eye contact Speech: rapid, soft and pressured Mood & Affect: anxious Insight: insight good Judgement: judgement good Skin no rashes or lesions noted and no wounds MDM MDM MDM Narrative Medical decision making narrative: I offered patient testing to rule out organic etiologies of some of her physical symptoms, she refused, she states she has a lot of bills and does not want anymore, so she does not want any more testing which I understand. She states I am pretty sure it is all in my head suggesting her anxiety is causing this, certainly this could be the case. She understands reasons to return, she is feeling much better and talking without pressured speech after having discussion with social welfare clerk in the ED. She contracts for safety, she also agrees to be contacted to check on her condition tomorrow, and she is agreeable for a prescription for as needed hydroxyzine especially for use at night. Follow-up advised. Rhythm Strip Rhythm Strip: Sinus Rhythm Rate: 80 Ectopy: None Discharge Plan Triage Chief Complaint: Anxiety ED Provider: Graeme Shafer Dx/Rx/DC Orders Clinical Impression: Anxiety, Acute reaction to situational stress, Palpitations, Allergic rhinitis Instructions: ED Anxiety Reaction, ED Allergic Rhinitis Prescriptions: New hydroxyzine pamoate [hydroxyzine pamoate] 25 MG capsule 50 mg PO TID PRN PRN (Reason: Anxiety) Qty: 30 RF: 0 cetirizine [24Hour Allergy] 10 mg tablet 10 mg PO DAILY PRN (Reason: allergy symptoms) Qty: 30 RF: 0 Primary Care Provider: Care Physician,No Primary Referrals: [facility] [GROUP OF PHYSICIANS] - 3-5 Days Care Physician,No Primary [Primary Care Provider] - Disposition Disposition: Home, Self Care
--- NOTE | 2021-06-13 18:02 | CM.ED ---
Social Work Consult: Mental Health Referral source: Dr. Shafer Chief Complaint: overwhelmed with stress. Marital/Social History: Single. Living Situation: Full-time student at the [employer] and lives on campus. Support/Resources: Friends as main support. No active counseling services. History: Denies Education/Employment History: Senior at [employer]. Denies issues with comprehension or understanding. Mental Health Treatment/History: Anxiety and Depression. Patient with history of suicidal thoughts and inpatient psychiatric placement in 2020. Patient currently not taking any medication for mental health. Triggers/Stressors: School work, life change coming up this spring after patient graduates [employer]. Patient unsure of career options. Patient with limited family support and unable to return to living with family after school. Patient does state to have good friends and to be able to stay with friends if needed. Coping Skills: Talking with others. Snapping a rubber band on wrist. Abuse Issues: Denies Substance Abuse Hx: Denies Risk to Self/Others: Patient denies suicidal thoughts. Patient denies plan or intent to complete by suicide. Patient does confirm to have had suicidal thought in January due to pain. Patient denies homicidal thoughts, plans, intents. Patient denies self harming behaviors or harm to others. Mental Status Exam: A&Ox3 Appearance/General Behavior: Clean. Appropriate. Mood/Affect: Anxious. Communication Pattern: Pressured speech as beginning of assessment but was able to calm self down throughout assessment. Thought Process: Appropriate. Denies visual and auditory hallucinations. Judgement: Good Infight: Good Assessment: Met with patient in room. Introduced self and social insurance analyst role. Patient agreeable to speak with this social insurance analyst. Patient states to be stressed with current life stressors such as school and up coming graduation and having to figure out where patient is going to live. Patient states to have been meeting with advisor today and was told that patient had to come to the hospital for an evaluation. Patient is not currently in any counseling. Patient not open to counseling services but aware of [facility] options at the [facility] and reports that patient believes that patient would reach out for help. This social insurance analyst problem solving ways for patient to manage stress. Patient plans to speak with advisor about getting an extension on a school project and then speak with a friend about how patient has been feeling. Patient states to have support from friends but not family. Patient aware of crisis hotline options. Patient agreeable to follow up call tomorrow. Patient states to feel safe to self and throughout the assessment patient was able to calm self down and talk with a normal speech pattern. Patient thanked this social insurance analyst for time and information. Collaborating with Dr. Shafer. Dr. Shafer agreeable with plan for patient to discharge to the community. PLAN: Discharge to home. Julien REIS, AUGUSTO-Jose Armando
[2021-06-13 18:27] VITALS: PULSE 68; RESP 17
--- NOTE | 2021-06-15 19:02 | CM.ED ---
JACK Note: JACK called patient as follow up to a safety plan. JACK called at 1:15pm and JACK left voice mail message for her to call [employer] and crm back. As of this time (7:03pm) there was no follow up phone call. Hoda CHAMBERS
== END 2021-06-13 18:32 | disposition home or self-care (01) ==
PROVIDERS: Emergency Provider Emergency Medicine; Visit Provider Emergency Medicine
DX: F41.9 Anxiety disorder, unspecified (principal); F43.0 Acute stress reaction; R00.2 Palpitations; J45.991 Cough variant asthma
CPT/HCPCS: 99285

== ENCOUNTER 2021-06-19 16:43 | Emergency (ER) | payer OTHER, SELFPAY ==
[2021-06-19 16:44] VITALS: BP 109/82; PULSE 89; RESP 15; TEMP 36.2; O2SAT 97; BMI 24.0
[2021-06-19 16:51] VITALS: O2SAT 97
--- NOTE | 2021-06-19 17:17 | EX.ED.DYSGE1 ---
HPI History of Present Illness Chief Complaint: Asthma Narrative Narrative: Patient states for the past 1 to 2 weeks she has been having spring seasonal allergies that have been making her asthma flareup. She has cough and allergy induced asthma, she states she has been coughing, no myalgias, headaches, fevers, chills, or GI symptoms. She has an albuterol inhaler and has been using it off and on and it has been controlling her asthma symptoms but since it has been going on for 1 to 2 weeks she is requesting a prescription for oral prednisone and maybe a refill on her albuterol inhaler. 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 She states they sent me here today because of liability. Although the patient did not mention anything other than the above, as I came out of the room, nursing states they received a fax from someone at the [facility] with a copy of a 3 page email she sent one of her professors that made them concerned enough to send her here for psychiatric reasons. She talked about seeing large earth worms, dinosaurs, and perseverates about many things in this email. She was seen here in the ER last week for anxiety and was evaluated by social work then, and allowed to go home/back to school. [facility] Medical History Asthma, cough variant Idiopathic anaphylaxis Interstitial cystitis Home Medications cetirizine [24Hour Allergy] 10 mg PO DAILY PRN #30 tab 06/13/21 [Rx Last Taken Unknown] hydroxyzine pamoate 50 mg PO TID PRN PRN #30 capsule 06/13/21 [Rx Last Taken Unknown] albuterol sulfate [Ventolin HFA] 1 - 2 puff INHALATION Q4H PRN PRN #1 inhaler 06/19/21 [Rx Last Taken Unknown] prednisone 10 mg PO UD #33 tab 06/19/21 [Rx Last Taken Unknown] Allergy/AdvReac Type Severity Reaction Status Date / Time No Known Allergies Allergy Verified 06/19/21 16:44 Social History Smoking Status: Never smoker ROS ROS ED Constitutional Constitutional ED: Denies chills or fever(s) Eyes Eyes: Denies change in vision or diplopia ENT ENT ED: Denies rhinorrhea or sore throat Cardiovascular Cardiovascular: Reports chest pain and other Details: Occasional chest tightness when she is wheezing, there is altogether ; Denies palpitations Respiratory/Chest Respiratory/Chest: Reports cough and wheezing Gastrointestinal Gastrointestinal: Denies abdominal pain, diarrhea, nausea or vomiting Genitourinary Genitourinary ED: Denies dysuria or hematuria Musculoskeletal Musculoskeletal: Denies back pain or neck pain Integumentary Denies abscess or rash Neurologic Neurologic: Denies headache(s), paresthesias or weakness Psychiatric Psychiatric: Reports as per HPI and behavioral changes; Denies suicidal thoughts EXAM Physical Exam Const Vital Signs: 06/19/21 16:44 06/19/21 16:51 Temperature 97.1 F L Temperature Source Temporal Pulse Rate 89 Respiratory Rate 15 Respiratory Effort Normal Non-Labored Respiratory Depth Normal Respiratory Pattern Normal Blood Pressure 109/82 H Blood Pressure Mean 91 Pulse Ox 97 Oxygen Delivery Method Room Air Room Air Positive well nourished and well developed General Appearance ED: well developed and NAD HEENT Reports moist mucous membranes normocephalic and atraumatic Eyes PERRL and EOMs intact bilaterally Neck full ROM, no lymphadenopathy, supple, no meningeal signs and thyroid normal Resp normal respiratory effort and clear to auscultation bilaterally Cardio regular rate, regular rhythm and no murmurs GI non-tender and non-distended Auscultation: normoactive bowel sounds Palpation: soft Back/Spine no CVA tenderness General Back: other FROM Extremity normal to inspection General Extremety ED: Negative for edema, pulses abnormal or tenderness General Extremity: Negative for edema or pulses abnormal Neuro oriented x3, CN's II-XII intact bilaterally and no sensory deficits noted Sensorium / Orientation: awake and alert Motor Exam: strength 5/5 throughout Psych mental status grossly normal, thought process normal and cooperative Speech: rapid Mood & Affect: anxious Skin no rashes or lesions noted and no wounds MDM MDM MDM Narrative Medical decision making narrative: I discussed with social work. They spent some time with the patient. 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 At this time she is stable for outpatient follow-up. The patient did not know she was sent here for those reasons which is why she did not mention them. We will treat her with a tapering course of prednisone for her allergies and asthma exacerbation. Discharge Plan Triage Chief Complaint: Asthma ED Provider: Graeme Shafer Dx/Rx/DC Orders Clinical Impression: Acute seasonal allergic rhinitis, Anxiety, Acute asthma exacerbation Instructions: ED Asthma, Acute (Adult) Prescriptions: New prednisone 10 MG tablet 10 mg PO UD Qty: 33 RF: 0 albuterol sulfate [Ventolin HFA] 1 INHALER inhaler 1 - 2 puff inhalation Q4H PRN PRN (Reason: Wheezing) Qty: 1 RF: 0 No Action hydroxyzine pamoate [hydroxyzine pamoate] 25 MG capsule 50 mg PO TID PRN PRN (Reason: Anxiety) Qty: 30 RF: 0 cetirizine [24Hour Allergy] 10 mg tablet 10 mg PO DAILY PRN (Reason: allergy symptoms) Qty: 30 RF: 0 Primary Care Provider: Care Physician,No Primary Referrals: [facility] [GROUP OF PHYSICIANS] - 3-5 Days Care Physician,No Primary [Primary Care Provider] - Disposition Disposition: Home, Self Care
[2021-06-19] MEDS: predniSONE 20 MG Tablet 40 MG PO (17:50)
--- NOTE | 2021-06-19 18:17 | CM.ED ---
Social Work Consult: Mental Health Referral source: Dr. Shafer Informant: Patient, chart, medical team. Chief Complaint: Patient reports to have came to the ED today due to Asthma. I have just been coughing more. Marital/Social History: Single. Living Situation: student housing at the [facility] [employer] [facility] [employer]. Support/Resources: I have lost of friends. No active counseling services. History: Denies Education/Employment History: Senior at the [employer]. 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 Mental Health/Treatment history: Anxiety and Depression. No current medication to manage mental health. Patient reported history of inpatient psychiatric placement in 2020 due to suicidal thoughts and vague suicidal plan. Triggers/Stressors: not sure what I am doing after graduation. Patient just found out today that patient parents are going to be coming to patient graduation I am happy, but now stressed out it. Patient reports to have thought that patient parents were not going to be coming to graduation. Coping Skills: Talking with others. Patient reports to use a rubber band, snapped against wrist as a coping skill. Abuse Issues: Denies. Substance Abuse Hx: Denies Risk to Self/Others: Patient denies suicidal thoughts, plans, intents. Patient goal oriented as evidenced by looking forward to [employer] this weekend as well as graduating and finishing my I.S. Patient denies homicidal thoughts, plans, intents. Patient denies violence against self or others. Mental Status Exam: A&Ox3 Appearance/General Behavior: Clean. Appropriate. Calm. Mood/Affect: Pleasant and engaged affect. Communication Pattern: Responds to questions. Initiates conversation. Thought Process: Appropriate. Patient denies any visual or auditory hallucinations. Judgement: Good Insight: Good. Assessment: This social professionals met with patient in room. Introduced self and social professionals role. Patient remembering this social professionals from ED visit last week when patient came to the ED due to Anxiety. Patient agreeable to speak with this social professionals. Last week patient presented with pressured speak and physically appeared anxious. This week patient sitting comfortably in chair and able to focus on conversation with this social professionals. Patient with normal tone and voice inflection throughout conversation. This social professionals inquired how patient has been doing since last week. Patient states much better than last week. Last week patient was to follow up with a friend and request an extension on I.S, patient reports to have done both and I feel good about things. Nursing provided this social professionals with an e-mail that patient sent to patient advisor, Shital Lay earlier today and was flagged with concerns for patient. This social professionals broached topic of e-mail. In the e-mail patient stated multiple times that patient would be going to the asylum soon. Patient also making comments about must rescue my captive dinosaurs and has multiple P.S's at the end of the e-mail. Patient e-mail presented as if patient was anxious and having difficulty functioning. Patient now presenting to this social professionals as appropriate and able to manage own emotions/behaviors. Patient with no bizarre behavior and does not present with suicidal thoughts or intents. This social professionals going over e-mail with patient and inquired if patient understood why staff members at the [facility] are concerned about patient. Patient states yeah that makes sense. Patient able to clarify statements for patient that patient made in the e-mail. Patient states to have a running joke with patient advisor about patient dinosaurs. Patient also reports to typically have several P.S. at the end of e-mail's, it is an inside joke. This social professionals broached topic of asylum. Patient states I was really anxious about my Asthma this morning. Patient able to identify why staff members at the [facility] were/are concerned about patient. Patient agreeable to this social professionals reaching out to the [facility] for clarification on situation. Patient does report to be caring for self, eating, showering, and sleeping. Telephone call to Jorge A Frey ([phone]), devops consultant counselor at the [facility]. Jorge A reports to have been aware of e-mail. This social professionals communicating that patient is presenting with sound mind and actions and outside of the e-mail there appear to be no concerns. This social professionals communicating that patient does not appear to be at risk to self or others. This social professionals communicating that patient is presenting as improved from last week and was able to follow up on task from last ED visit. This social professionals recommending for patient to have counseling services and for [facility] to [facility] in with patient tomorrow. Jorge A is comfortable with plan for patient to return to the community and agrees that patient does not appear to be presenting as a risk to self or others. Jorge A reports that plan will be to follow up with patient tomorrow. This social professionals collaborating with Dr. Shafer on above information. Dr. Shafer agreeable with plan for patient to discharge to the community. This social professionals met with patient in room again. This social professionals provided patient with local counseling resources as well as local crisis hotline. Patient is aware of [facility] resources at the [facility] and that this social professionals as well as the [facility] will be following up with patient tomorrow. Patient is agreeable to all discharge planning. Patient denies concerns on returning to home and feels safe to self. Active support and listening provided. Of note: Patient was able to identify that a social professionals did call patient last week for follow up and I was sleeping. Patient confirms to have not called social professionals back. This social professionals encouraged patient to return phone calls of outside supports to be able to assist patient better, patient voiced understanding and agreeable to this. PLAN: Discharge to community. No further services requested or indicated. Julien REIS, FILEMON
[2021-06-19 19:30] VITALS: PULSE 98; RESP 16; O2SAT 98
--- NOTE | 2021-06-20 12:01 | CM.ED ---
Social Work Telephone call to patient for follow-up call. Answered. Patient reports to be doing well and voiced no concerns. This social service assistant offered support. No further services requested or indicated. Julien REIS, FILEMON
== END 2021-06-19 19:45 | disposition home or self-care (01) ==
PROVIDERS: Emergency Provider Emergency Medicine; Visit Provider Emergency Medicine
DX: J45.991 Cough variant asthma (principal); F41.9 Anxiety disorder, unspecified; Z79.899 Other long term (current) drug therapy
CPT/HCPCS: 99283

== ENCOUNTER 2021-07-19 20:50 | Emergency (ER) | payer OTHER, SELFPAY ==
[2021-07-19 20:50] VITALS: BP 116/50; PULSE 87; RESP 16; TEMP 37.1; O2SAT 99; BMI 24.1
--- NOTE | 2021-07-19 21:15 | EDS_ITS ---
HPI History of Present Illness Chief Complaint: Dizziness Detail of Chief Complaint: Near syncope Informant: patient Onset/Context/Timing Onset: Days Context: Sudden Onset Timing: Intermittent Current Severity: Gone Maximum Severity: Mild Narrative Narrative: 21-year-old female past medical history of asthma. She is a graduating [employer] student. Said last week she had episode of near syncope in the bathroom. She said she felt lightheaded and fell backwards. Does not believe she actually lost consciousness. Intermittently since that time she has had some dizziness. Denies any significant head trauma recently. She is on no blood thinners. She denies any recent illness. Denies any nausea, vomiting or diarrhea. No heavy menstrual period. No rectal bleeding. No melena. No significant chest pain or shortness of breath. She denies any dysuria. No fever. Last menstrual period was about 2 weeks ago. She has never had a syncopal episode. States she has been eating and drinking well. After this happened last week she was at a [employer] house they called the squad and at that time she started feeling better and did not want to be evaluated. Prior similar symptoms: Yes Recent Illness/Hospitalization: No PFSH PFSH Medical History Asthma, cough variant Idiopathic anaphylaxis Interstitial cystitis Home Medications cetirizine [24Hour Allergy] 10 mg PO DAILY PRN #30 tab 06/13/21 [Rx Last Taken Unknown] albuterol sulfate [Ventolin HFA] 1 - 2 puff INHALATION Q4H PRN PRN #1 inhaler 06/19/21 [Rx Last Taken Unknown] Allergy/AdvReac Type Severity Reaction Status Date / Time No Known Allergies Allergy Verified 07/19/21 20:52 Social History Smoking Status: Never smoker ROS ROS ED ROS Narrative Lightheaded. Near syncope. Review of Systems ROS Unobtainable: Denies due to encephalopathy Constitutional Constitutional ED: Denies fever(s) Eyes Eyes: Denies change in vision ENT ENT ED: Denies ear pain Cardiovascular Cardiovascular: Denies chest pain Respiratory/Chest Respiratory/Chest: Denies cough or dyspnea Gastrointestinal Gastrointestinal: Denies abdominal pain, diarrhea, nausea or vomiting Genitourinary Genitourinary ED: Denies dysuria or hematuria Musculoskeletal Musculoskeletal: Denies arthralgias or myalgias Integumentary Denies rash Neurologic Neurologic: Denies headache(s) Psychiatric Psychiatric: Denies depression Endocrine Endocrinology: Denies polyuria Allergic/Immunologic Allergic/Immunologic ED: Denies urticaria EXAM Physical Exam Narrative Exam Narrative: 19-year-old female no acute distress. Vital signs stable afebrile. Pulse ox 99% on room air no hypoxia. H EENT exam normal. Pupils round reactive to light. No facial droop. Normal speech. No trauma. Neck nontender no meningismus. No lymphadenopathy. Lungs clear to auscultation bilaterally. Heart regular rhythm no murmur. Chest wall nontender. Abdomen soft nontender. Moving all 4 extremities. Equal symmetrical land conservation specialist strength. Dorsi plantarflexion intact. Calves are nontender without edema or cords. Back nontender. Neurologic exam normal. NIH 0. Const Vital Signs: 07/19/21 20:50 07/19/21 21:25 07/19/21 21:30 Temperature 98.7 F Temperature Source Temporal Pulse Rate 87 Pulse Rate [Lying] 71 Pulse Rate [Sitting (for 1 minute prior to obtaining)] 73 Pulse Rate [Standing (for 1 minute prior to obtaining)] 75 Respiratory Rate 16 Respiratory Effort Normal Non-Labored Blood Pressure 116/50 L Blood Pressure [Lying] 109/69 Blood Pressure [Sitting (for 1 minute prior to obtaining)] 110/72 Blood Pressure [Standing (for 1 minute prior to obtaining)] 108/80 Blood Pressure Mean 72 Blood Pressure Mean [Lying] 82 Blood Pressure Mean [Sitting (for 1 minute prior to obtaining)] 84 Blood Pressure Mean [Standing (for 1 minute prior to obtaining)] 89 Pulse Ox 99 Oxygen Delivery Method Room Air Positive well developed; Negative for obese, cachectic, contractures or unkempt General Appearance ED: well developed and NAD; Negative for unkempt, cachectic, contractures, cyanotic, diaphoretic or pallor Nutritional Appearance: Negative for cachectic or obese HEENT Reports moist mucous membranes Negative for trauma Eyes PERRL and EOMs intact bilaterally General Eye ED: Negative for pale conjunctiva or scleral icterus Neck no lymphadenopathy, supple and no JVD General: Negative for tenderness Chest Wall inspection of chest normal and palpation of chest normal Resp normal respiratory effort and clear to auscultation bilaterally Effort and Inspection: Negative for pain with movement Auscultation: Negative for rales, rhonchi or wheezes Cardio regular rate, regular rhythm, S1 normal heart sound, S2 normal heart sound and no murmurs GI normal to inspection, nondistended, normoactive bowel sounds, non-tender, non-distended and no masses; Negative for hepatosplenomegaly Inspection: Negative for abdominal distention Auscultation: normoactive bowel sounds; Negative for hyperactive bowel sounds or hypoactive bowel sounds Palpation: soft and tender; Negative for guarding, splenomegaly or rebound tenderness present Back/Spine no CVA tenderness General Back: Negative for CVA tenderness Cervical Spine: Negative for cervical spine tenderness Thoracic Spine / Upper Back: Negative for thoracic spinal tenderness or paraspinal muscle tenderness Lumbar Spine / Lower Back: Negative for lumbar spinal tenderness Extremity normal to inspection General Extremety ED: Negative for edema or tenderness General Extremity: Negative for edema Neuro oriented x3, CN's II-XII intact bilaterally and no sensory deficits noted Sensorium / Orientation: alert; Negative for orientation impaired, lethargic or stuporous Motor Exam: strength 5/5 throughout; Negative for general weakness Psych mental status grossly normal Appearance: Negative for unkempt Attitude: No agitated Mood & Affect: Negative for depressed or tearful Skin no rashes or lesions noted and no wounds General Skin Exam: Negative for jaundice or pallor MDM MDM MDM Narrative Medical decision making narrative: Young female with near syncope and lightheadedness. Exam benign. Screening labs, EKG and orthostatic vital signs to be obtained. Her exam is benign and she clinically looks well. Repeat exam patient is doing well at 10:39 PM. She will be discharged home with outpatient follow-up and return if worse. Lab Data Attestation: I reviewed the patient's lab results. Lab results narrative: CBC normal white count of 7. H&H 12.9 and 38. Electrolytes unremarkable gap of 8 normal BUN and creatinine. Glucose 86. Serum test negative. Orthostatic vital signs negative. EKG unremarkable. Labs: Laboratory Results - last 24 hr 07/19/21 07/19/21 07/19/21 21:27 21:27 21:27 WBC 7.7 RBC 4.28 Hgb 12.9 Hct 38.3 MCV 89.5 MCH 30.1 MCHC 33.7 RDW Std Deviation 39.6 RDW Coeff of May 12.2 Plt Count 264 MPV 10.0 Immature Gran % (Auto) 0.300 Neut % (Auto) 55.1 Lymph % (Auto) 34.2 [place] % (Auto) 9.5 Eos % (Auto) 0.5 Baso % (Auto) 0.4 Absolute Neuts (auto) 4.3 Absolute Lymphs (auto) 2.64 Nucleated RBC % 0 Sodium 140 Potassium 3.7 Chloride 106 Carbon Dioxide 26.0 Anion Gap 8 BUN 16 Creatinine 0.71 Estim Creat Clear Calc 98.30 Est GFR (MDRD) Af Amer 133 Est GFR (MDRD) Non-Af 110 BUN/Creatinine Ratio 22.7 H Glucose 86 Calcium 9.5 Serum , Qual NEGATIVE Rhythm Strip Rhythm Strip: Sinus Rhythm Rate: 75 Ectopy: None EKG Initial EKG: Attestation: I personally reviewed and interpreted this EKG as follows: Interpretation: Sinus Rhythm, No Acute Injury Pattern and Sinus Arrythmia Comments: Normal sinus rhythm rate of 75 no acute signs of [place], ischemia or dysrhythmia. Discharge Plan Triage Chief Complaint: Dizziness ED Provider: Hieu Davis Dx/Rx/DC Orders Clinical Impression: Near syncope Instructions: ED Near-Fainting, Uncertain Cause Prescriptions: No Action cetirizine [24Hour Allergy] 10 mg tablet 10 mg PO DAILY PRN (Reason: allergy symptoms) Qty: 30 RF: 0 albuterol sulfate [Ventolin HFA] 1 INHALER inhaler 1 - 2 puff inhalation Q4H PRN PRN (Reason: Wheezing) Qty: 1 RF: 0 Primary Care Provider: Care Physician,No Primary Referrals: Omar Mullins MD [STAFF PHYSICIAN] - 1 Week if not improving Care Physician,No Primary [Primary Care Provider] - Activity Restrictions/Additional Instructions: Your exam is unremarkable. Your labs and EKG were unremarkable. Disposition Disposition: Home, Self Care
--- NOTE | 2021-07-19 21:15 | EKG12_ITS ---
Test Reason : DYSRHYTHMIA Blood Pressure : / mmHG Vent. Rate : 075 BPM Atrial Rate : 075 BPM P-R Int : 122 ms QRS Dur : 076 ms QT Int : 384 ms P-R-T Axes : 049 078 020 degrees QTc Int : 428 ms Normal sinus rhythm with sinus arrhythmia Normal ECG Confirmed by DANII COREY, CAROLINE ([id number]), newspaper or periodical editor LEEROY ZHANG ([id number]) on 07/23/2021 9:54:36 AM Referred By: GENEVIEVE Confirmed By:GUDELIA FOY MD
[2021-07-19 21:30] VITALS: BP 108/80; BP 109/69; BP 110/72; PULSE 71; PULSE 73; PULSE 75
[2021-07-19 21:40] LABS: Absolute Lymphocyte Count 2.64 X10^3/uL (0.83-4.51); Absolute Neutrophil Count 4.3 X10^3/uL (2.0-7.7); Basophil# 0.03 X10^3/uL; Basophil% 0.4 % (0-1); Eosinophil# 0.04 X10^3/uL; Eosinophils% 0.5 % (0-5); Hematocrit 38.3 % (37-47); Hemoglobin 12.9 g/dL (12.0-15.0); Lymphocyte # 2.64 X10^3/ul (0.83-4.51); Lymphocyte % 34.2 % (19-41); Mean Corp Hgb Conc 33.7 g/dL (32-36); Mean Corpuscular Hgb 30.1 pg (27.0-32.0); Mean Corpuscular Volume 89.5 fL (81-99); Monocyte# 0.73 X10^3/uL; Monocyte% 9.5 % (0-10); NRBC Flagged by Analyzer 0 % (0-5); Neutrophil # 4.25 X10^3/uL (2.7-7.7); Neutrophil % 55.1 % (47-70); Platelet Count 264 K/mm3 (150-450); RBC Distribution Width CV 12.2 % (11.6-14.6); RBC Distribution Width SD 39.6 fl (35.1-43.9); Red Blood Count 4.28 M/mm3 (4.2-5.4); White Blood Count 7.7 K/mm3 (4.4-11.0)
[2021-07-19 21:48] LABS: Internal QC Validated? YES +Cl - CLEAR BKGD; Pregnancy, Serum, hCG Quali. NEGATIVE Negative
[2021-07-19 21:50] LABS: Anion Gap 8 (5-15); BUN 16 mg/dL (7-18); BUN/Creat Ratio 22.7 RATIO (10-20); Calcium,Total 9.5 mg/dL (8.5-10.1); Chloride 106 mmol/L (98-107); Creatinine, Serum 0.71 mg/dL (0.55-1.02); EST Glomerular Filtration Rate 110 mL/min (>60); Est Glom Filt Rate - Afr Amer 133 mL/min (>60); Glucose 86 mg/dL (74-106); Potassium 3.7 mmol/L (3.5-5.1); Sodium Level 140 mmol/L (136-145)
[2021-07-19 22:53] VITALS: BP 109/75; PULSE 69; RESP 18; O2SAT 99
== END 2021-07-19 22:53 | disposition home or self-care (01) ==
PROVIDERS: Emergency Provider Emergency Medicine; Visit Provider Emergency Medicine
DX: R55 Syncope and collapse (principal); J45.991 Cough variant asthma
CPT/HCPCS: 80048; 84703; 85025; 93005; 99285

== ENCOUNTER 2021-08-12 21:49 | Emergency (ER) | payer OTHER, SELFPAY ==
[2021-08-12 21:51] VITALS: BP 118/89; PULSE 114; RESP 15; TEMP 37.6; O2SAT 100; BMI 24.5
--- NOTE | 2021-08-12 22:23 | EKG12_ITS ---
Test Reason : CP Blood Pressure : / mmHG Vent. Rate : 094 BPM Atrial Rate : 094 BPM P-R Int : 124 ms QRS Dur : 078 ms QT Int : 356 ms P-R-T Axes : 055 079 011 degrees QTc Int : 445 ms Normal sinus rhythm Normal ECG Confirmed by JOLANTA COREY, MARGARETH ([id number]), general expeditor LEEROY ZHANG ([id number]) on 08/13/2021 11:23:25 AM Referred By: HOMERO Confirmed By:MARGARETH STOVER MD
--- NOTE | 2021-08-12 22:24 | EDS_ITS ---
HPI History of Present Illness Chief Complaint: Chest Other Informant: patient Narrative Narrative: Patient presents with about 5 days of feeling as though her heart racing and lightheadedness. She also feels short of breath. When I talk more details with her I find out this actually goes back about 3 or so weeks ago. She has had a couple near syncopal or syncopal episodes. She is not sure what has caused these. She has been using her albuterol inhaler more often and using it several puffs at a time rather than 1 or 2. She was wondering if this was asthma but she has not heard wheezing. There is coughing. Of note, it is initially very difficult to get the history. I have to asked the patient to slow down her speech. She speaks so fast that is hard to even hear the words. She does not desaturate with this. She does get very concerned and nervous when I asked questions. She commonly says oh dear and oh my. She states she has had anxiety but its mostly over her medical issues. She has had a history of intermittent asthma anaphylaxis to unknown compound but has never used epinephrine and interstitial cystitis. She does live in [place] but goes to school here. However, she has been here for over 9 months without any travel, surgery, immobilization or personal or family history of DVT or PE. She is not on control. She has no leg pain or swelling. Nothing specifically makes her symptoms completely better or worse. Sometimes she feels worse when she is laying down quietly and it is better if she is up and active. [facility] Medical History Asthma, cough variant Idiopathic anaphylaxis Interstitial cystitis Home Medications cetirizine [24Hour Allergy] 10 mg PO DAILY PRN #30 tab 06/13/21 [Rx Last Taken Unknown] albuterol sulfate [Ventolin HFA] 1 - 2 puff INHALATION Q4H PRN PRN #1 inhaler 06/19/21 [Rx Last Taken Unknown] Allergy/AdvReac Type Severity Reaction Status Date / Time No Known Allergies Allergy Verified 08/12/21 21:54 Social History Smoking Status: Never smoker ROS ROS ED Constitutional Constitutional ED: Denies chills or fever(s) Eyes Eyes: Denies blurry vision ENT ENT ED: Denies ear pain, rhinorrhea or sore throat Cardiovascular Cardiovascular: Reports palpitations and racing heartbeat; Denies chest pain Respiratory/Chest Respiratory/Chest: Reports dyspnea; Denies cough or sputum Gastrointestinal Gastrointestinal: Denies abdominal pain, nausea or vomiting Genitourinary Genitourinary ED: Denies dysuria or hematuria Musculoskeletal Musculoskeletal: Denies myalgias Integumentary Denies rash Neurologic Neurologic: Denies headache(s), paresthesias or weakness Psychiatric Psychiatric: Reports anxiety; Denies depression, suicidal ideation or suicidal thoughts Endocrine Endocrinology: Denies polydipsia or polyuria Hematologic/Lymphatic Hematologic/Lymphatic: Denies easy bleeding or easy bruising Allergic/Immunologic Allergic/Immunologic ED: Denies urticaria EXAM Physical Exam Const Vital Signs: 08/12/21 21:51 08/12/21 22:12 08/13/21 00:08 Temperature 99.6 F H Temperature Source Temporal Pulse Rate 114 H 87 Respiratory Rate 15 15 Respiratory Effort Normal Blood Pressure 118/89 H 103/68 Blood Pressure Mean 98 79 Pulse Ox 100 98 Oxygen Delivery Method Room Air Room Air Positive well nourished and well developed General Appearance ED: well developed and NAD HEENT Reports dry mucous membranes Mouth ED: Yes dry mucous membranes Mouth: dry mucous membranes Eyes General Eye ED: Negative for pale conjunctiva or scleral icterus Neck no JVD Chest Wall inspection of chest normal Resp normal respiratory effort and clear to auscultation bilaterally Effort and Inspection: respiratory distress Auscultation: Negative for rales, rhonchi or wheezes Cardio regular rate and regular rhythm Rate: other Other Details: Initially her heart rate is running about 94. When we talk about doing work-up it goes up to about 115. It then does come back down. GI normal to inspection, nondistended, normoactive bowel sounds Back/Spine no CVA tenderness Extremity normal to inspection Extremity Narrative: No edema, cords, tenderness, distended veins or palpable cords. General Extremety ED: Negative for edema, pulses abnormal or tenderness General Extremity: Negative for edema or pulses abnormal Neuro Sensorium / Orientation: awake and alert Psych Mood & Affect: anxious Skin no rashes or lesions noted MDM MDM MDM Narrative Medical decision making narrative: Patient CBC including white count hemoglobin and platelets are normal. D-dimer is very low. Troponin is also very low. Electrolytes are normal other than minimally decreased potassium. This should self correct with diet. Chest x-ray showed no acute process. EKG showed no acute process. Patient's recheck. Her heart rate is now about 69-78 while I am in the room. We did have a discussion. I think follow-up is appropriate. I will give her a referral to a gas or water meter installer as her primary complaint is palpitations. She sees [facility] at school for regular medical care. We also discussed cutting back albuterol use unless she actually notes wheezing. It is quite possible that the albuterol is contributing to anxiety episodes also that could account for her symptoms. We discussed reasons to return. Lab Data Attestation: I reviewed the patient's lab results. Labs: Laboratory Results - last 24 hr 08/12/21 08/12/21 08/12/21 22:30 22:30 22:30 WBC 7.6 RBC 4.34 Hgb 13.0 Hct 38.1 MCV 87.8 MCH 30.0 MCHC 34.1 RDW Std Deviation 38.4 RDW Coeff of May 11.9 Plt Count 285 MPV 10.0 Immature Gran % (Auto) 0.300 Neut % (Auto) 55.9 Lymph % (Auto) 33.6 [place] % (Auto) 9.0 Eos % (Auto) 0.5 Baso % (Auto) 0.7 Absolute Neuts (auto) 4.2 Absolute Lymphs (auto) 2.54 Nucleated RBC % 0 D-Dimer Quant (PE/DVT) < 0.27 L Sodium 138 Potassium 3.3 L Chloride 109 H Carbon Dioxide 24.0 Anion Gap 5 BUN 8 Creatinine 0.63 Estim Creat Clear Calc 105.70 Est GFR (MDRD) Af Amer 152 Est GFR (MDRD) Non-Af 126 BUN/Creatinine Ratio 12.7 Glucose 99 Calcium 8.8 Troponin I High Sens < 3 L Radiography Diagnostic Testing: Clinical Impression(s) from Imaging Studies Chest X-Ray 08/13/21 00:05 IMPRESSION: No acute cardiopulmonary process. Electronically Signed: Mello Aguilar MD at 0:48 EDT , EKG Initial EKG: Comments: EKG done for palpitations read by me shows sinus rhythm with a rate of 94. No ectopy. No acute ST elevation. DE interval, QRS duration and QTc normal. Discharge Plan Triage Chief Complaint: Chest Other ED Provider: Simon Montes Dx/Rx/DC Orders Clinical Impression: Heart palpitations, Dyspnea, unspecified, Anxiety Instructions: ED Anxiety Reaction, ED Palpitations Prescriptions: No Action cetirizine [24Hour Allergy] 10 mg tablet 10 mg PO DAILY PRN (Reason: allergy symptoms) Qty: 30 RF: 0 albuterol sulfate [Ventolin HFA] 1 INHALER inhaler 1 - 2 puff inhalation Q4H PRN PRN (Reason: Wheezing) Qty: 1 RF: 0 Primary Care Provider: Care Physician,No Primary Referrals: Thomas Blake MD [STAFF PHYSICIAN] - As soon as possible Care Physician,No Primary [Primary Care Provider] - Disposition Disposition: Home, Self Care
[2021-08-12] MEDS: 0.9% Normal Saline 1,000 ML 999 ML IV (22:49)
[2021-08-12 22:52] LABS: Absolute Lymphocyte Count 2.54 X10^3/uL (0.83-4.51); Absolute Neutrophil Count 4.2 X10^3/uL (2.0-7.7); Basophil# 0.05 X10^3/uL; Basophil% 0.7 % (0-1); Eosinophil# 0.04 X10^3/uL; Eosinophils% 0.5 % (0-5); Hematocrit 38.1 % (37-47); Lymphocyte # 2.54 X10^3/ul (0.83-4.51); Lymphocyte % 33.6 % (19-41); Mean Corp Hgb Conc 34.1 g/dL (32-36); Mean Corpuscular Volume 87.8 fL (81-99); Monocyte# 0.68 X10^3/uL; NRBC Flagged by Analyzer 0 % (0-5); Neutrophil # 4.23 X10^3/uL (2.7-7.7); Neutrophil % 55.9 % (47-70); Platelet Count 285 K/mm3 (150-450); RBC Distribution Width CV 11.9 % (11.6-14.6); RBC Distribution Width SD 38.4 fl (35.1-43.9); Red Blood Count 4.34 M/mm3 (4.2-5.4); White Blood Count 7.6 K/mm3 (4.4-11.0)
[2021-08-12 23:08] LABS: D-Dimer Quantitative (DVT/PE) < 0.27 FEU/ug/m (0.27-0.49)
[2021-08-12 23:09] LABS: Anion Gap 5 (5-15); BUN 8 mg/dL (7-18); BUN/Creat Ratio 12.7 RATIO (10-20); Calcium,Total 8.8 mg/dL (8.5-10.1); Chloride 109 mmol/L (98-107); Creatinine, Serum 0.63 mg/dL (0.55-1.02); EST Glomerular Filtration Rate 126 mL/min (>60); Est Glom Filt Rate - Afr Amer 152 mL/min (>60); Glucose 99 mg/dL (74-106); Potassium 3.3 mmol/L (3.5-5.1); Sodium Level 138 mmol/L (136-145); Troponin-I HS < 3 pg/mL (3.0-54.0)
--- NOTE | 2021-08-13 00:05 | RAD_ITS ---
STUDY: X-RAY CHEST REASON FOR EXAM: Female, 21 years old. SOB TECHNIQUE: 1 view COMPARISON: 02/02/2021 FINDINGS: Cardiomediastinal silhouette is unremarkable. Costophrenic angles are sharp. Lungs are clear. The trachea is midline. There is no pneumothorax. The bones are grossly intact. RAD/Chest 1 View (Portable) IMPRESSION: No acute cardiopulmonary process. Electronically Signed: Mello Aguilar MD at 0:48 EDT ,
[2021-08-13 00:08] VITALS: BP 103/68; PULSE 87; RESP 15; O2SAT 98
[2021-08-13 01:10] VITALS: BP 114/73; PULSE 75; RESP 12; O2SAT 99
== END 2021-08-13 01:16 | disposition home or self-care (01) ==
PROVIDERS: Emergency Provider Emergency Medicine; Visit Provider Emergency Medicine
DX: R00.2 Palpitations (principal); F41.9 Anxiety disorder, unspecified; J45.991 Cough variant asthma; R06.00 Dyspnea, unspecified
CPT/HCPCS: 71045; 80048; 84484; 85025; 85379; 93005; 96360; 99283; J7030; A4216